=== PATIENT | female | born 1940 | race Caucasian/White ===

== ENCOUNTER 2022-02-09 14:07 | Outpatient (CLI) | payer OTHER, SELFPAY | END 2022-02-09 14:08 | disposition home or self-care (01) | LOC: INJ CL 14:08 | PROVIDERS: PCP Surgery; Visit Provider Family Medicine | DX: M17.12 Unilateral primary osteoarthritis, left knee (principal); M25.562 Pain in left knee | CPT/HCPCS: 64454 ==

== ENCOUNTER 2022-04-12 08:14 | Outpatient (RCR) | payer MEDICARE, SELFPAY | END 2022-06-04 10:26 | disposition home or self-care (01) | LOC: MOW 08:14 | PROVIDERS: PCP Surgery; Visit Provider Surgery | DX: Z76.0 Encounter for issue of repeat prescription (principal) | CPT/HCPCS: S5170 ==

== ENCOUNTER 2022-04-27 15:27 | Emergency (ER) | payer OTHER, SELFPAY ==
[2022-04-27] VITALS (13 sets, daily range): BP systolic 134–157; BP diastolic 66–69; PULSE 60–79; RESP 16; TEMP 36.7; O2SAT 97–99
--- NOTE | 2022-04-27 16:20 | CRLHL7_ITS ---
For Patients: As a result of the Cures Act, medical imaging exams and procedure reports are released immediately into your electronic medical record. You may view this report before your referring provider. If you have questions, please contact your health care provider. Indication: Bilateral knee pain. Technique: Bilateral knee, 6 views views. Comparison: None. Findings/Impression: Bones: Right knee arthroplasty. Severe left knee tricompartmental osteoarthritis. Alignment is normal. No fractures or bone lesions. No sign of acute injury. Joint spaces: Right knee arthroplasty. Severe left knee tricompartmental osteoarthritis.. Soft tissues: Unremarkable. Dictated by Da Bowden MD @ 04/27/2022 5:09:48 PM (Electronically Signed)
--- NOTE | 2022-04-27 16:23 | ED_ITS ---
HPI - General Adult General Chief complaint: Extremity Pain/Injury, Lower Stated complaint: Infections Yeast/UTI Knee Problems Time Seen by Provider: 04/27/22 16:04 History of Present Illness HPI narrative: Pt is a 82 year old woman with progressive dementia who lives at [address] [place] [address]. Pt is brought in by her daughter today as Arlin is having a harder time taking care of herself. Pt has severe bilateral knee pain although the right has been previously replaced. Pt also has been treated for repeated UTI's in the past and she has recently developed urinary frequency as well. Pt in addition has had significant hawa interigio which family currently have fairly well cleared up with local treatments and drying. Pt's daughter would like her evaluated for her knee pain and urinary frequency and would like her placed directly in a alf. Related Data Home Medications Medication Instructions Recorded Confirmed albuterol 90 mcg/actuation aerosol 2 spray inhalation PRN 04/27/22 04/27/22 inhaler aspirin 81 mg tablet,delayed 81 mg PO DAILY 04/27/22 04/27/22 release atorvastatin 20 mg tablet 20 mg PO DAILY 04/27/22 04/27/22 cephalexin 250 mg capsule mg 04/27/22 cholecalciferol (vitamin D3) 25 25 mcg PO DAILY 04/27/22 04/27/22 mcg (1,000 unit) tablet citalopram 10 mg tablet 10 mg PO 04/27/22 04/27/22 cyanocobalamin (vitamin B-12) 1,000 mcg PO DAILY 04/27/22 04/27/22 1,000 mcg tablet ferrous sulfate 325 mg (65 mg mg PO DAILY 04/27/22 04/27/22 iron) tablet,delayed release fosfomycin tromethamine 3 gram 04/27/22 oral packet gabapentin 300 mg capsule 300 mg PO QDAY 04/27/22 04/27/22 levofloxacin 500 mg tablet mg 04/27/22 lisinopril 5 mg tablet 5 mg PO BID 04/27/22 04/27/22 lysine HCl 500 mg capsule mg PO QAM 04/27/22 04/27/22 metoprolol succinate 25 mg ea PO 04/27/22 04/27/22 tablet,extended release 24 hr nystatin 100,000 unit/gram topical topical 04/27/22 cream omeprazole 20 mg capsule,delayed 20 mg PO DAILY 04/27/22 04/27/22 release pramipexole 0.25 mg tablet 0.25 mg PO 04/27/22 04/27/22 ropinirole 1 mg tablet 1 mg PO .Bedtime 04/27/22 04/27/22 tramadol 50 mg tablet 50 mg PO TID 04/27/22 04/27/22 Allergies Allergy/AdvReac Type Severity Reaction Status Date / Time walnut Allergy Unknown Verified 04/27/22 17:37 Peanut-containing Drug Allergy Uncoded 04/27/22 11:50 Products peanuts Allergy Uncoded 04/27/22 11:50 Review of Systems Status of ROS: Reports: unobtainable due to medical condition [facility] Medical History Back pain Bradycardia with 41-50 beats per minute Calculus of kidney Colitis Complicated urinary tract infection Osteoarthritis of left knee Pyelonephritis Urinary tract infection Exam Narrative: Exam Narrative: EXAM GENERAL: Patient appears frail and obese. EYES: No scleral icterus. THYROID: no thyroid nodules or thyromegaly. LYMPH: No supraclavicular or cervical lymphadenopathy. SKIN: Visible skin seen during exam normal or with benign process only. EXT: No dependent lower extremity pedal edema. HEART: Regular rate and rhythm with no murmurs, rubs, or gallops. LUNGS: Clear to auscultation bilaterally with no crackles or wheezes. ABD: Soft, non tender, non distended. PSYCH: Good eye contact, speech is not pressured. Ext: Previous TKA noted on the right knee Const: Vital Signs, click to edit/add: Vital Signs - 24 hr 04/27/22 15:52 04/27/22 16:19 04/27/22 16:20 Temperature 98.0 F Pulse Rate 62 61 Pulse Rate [Left P ulse Oximeter] 62 Respiratory Rate 16 Blood Pressure 157/68 H Blood Pressure [Ri ght Upper Arm] 157/68 H Pulse Oximetry 98 98 98 Oxygen Delivery Me thod Room Air 04/27/22 16:30 Temperature Pulse Rate 60 Pulse Rate [Left P ulse Oximeter] Respiratory Rate Blood Pressure Blood Pressure [Ri ght Upper Arm] Pulse Oximetry 99 Oxygen Delivery Me thod Course Course Hospital Course: Pt seen and examined. X ray of the knees and urinalysis collected. Reevaluation(s) Reevaluation #1: Reviewed pharmacy records. Pt was treated for UTI in March with Keflex and in early April with Levaquin. Pt is now on Phosphomycin weekly for UTI prophylaxis. Time: 17:34 Reevaluation #2: X rays of the knees bilaterally upon my review show osteoarthritis and degenerative changes. Time: 17:52 Vital Signs Vital signs: Initial Vital Signs Temperature 98.0 F 04/27/22 15:52 Temperature Source Temporal Artery Scan 04/27/22 15:52 Pulse Rate 62 04/27/22 15:52 Respiratory Rate 16 04/27/22 15:52 Blood Pressure 157/68 H 04/27/22 15:52 Blood Pressure Mean 97 04/27/22 15:52 Blood Pressure Position Supine 04/27/22 15:52 Pulse Oximetry 98 04/27/22 15:52 Oxygen Delivery Method 04/27/22 15:52 Vital Signs Temperature 98.0 F 04/27/22 15:52 Pulse Rate 62 04/27/22 15:52 Respiratory Rate 16 04/27/22 15:52 Blood Pressure 157/68 H 04/27/22 15:52 Pulse Oximetry 98 04/27/22 15:52 Oxygen Delivery Method 04/27/22 15:52 Temperature 98.0 F 04/27/22 15:52 Pulse Rate 60 04/27/22 16:30 Respiratory Rate 16 04/27/22 15:52 Blood Pressure 157/68 H 04/27/22 16:19 Pulse Oximetry 99 04/27/22 16:30 Oxygen Delivery Method 04/27/22 15:52 Medical Decision Making MDM Narrative Medical decision making narrative: Pt is a complex 82 year old woman who comes in with bilateral knee pain and difficulty functioning at home. Pt also has chronic UTI and prophylaxis. Pt has had no falls. X ray of the knees show degenerative changes. She has an ortho appt tomorrow. UA shows mild UTI vs colonization. Pt's family initially stated that they were unable to care for her and she needed placement. [facility] came down and explained that we have no beds in the hospital or at any local nursing homes. Pt's family states that they will make short term arrangements to care for pt at home. Pt was given 1 gram of Rocephin for urine findings. Chart review shows that she previously has grown out a pansensitive Citrobacter. Pt will continue current care under the care of her daughters and plan to follow up with [facility]health case manager tomorrow. Differential Diagnosis Differential Diagnosis: UTI, Sepsis, Urinary Colonization, Knee Injury, Fracture, CVA, Dementia Lab Data Labs: Lab Results 04/27/22 Range/Units 16:19 Urine Color Yellow (Yellow) Urine Appearance Clear (Clear) Urine pH 6.0 (5.0-8.5) Ur Specific [place] 1.010 (1.000-1.030) Urine Protein Negative (Negative) Urine Glucose (UA) Negative (Negative) Urine Ketones Negative (Negative) Urine Blood 2+ A (Negative) Urine Nitrite Negative (Negative) Urine Bilirubin Negative (Negative) Urine Urobilinogen 0.2 (0.2-1.0) Ur Leukocyte Esterase 1+ A (Negative) Urine RBC 2-5 A (0-2) Urine WBC 2-5 (0-5) Urine WBC Clumps None (None) Ur Squamous Epith Cells None (None-Few) Discharge Plan Discharge Clinical Impression: Chronic UTI Condition: Unchanged Additional Instructions: Continue current care Follow up with Orthopedics and [facility] tomorrow Activity Level: Activity as Tolerated Discharge Diet: Regular Prescriptions: No Action lysine HCl 500 mg capsule PO QAM cholecalciferol (vitamin D3) 25 mcg (1,000 unit) tablet 25 mcg PO DAILY ferrous sulfate 325 mg (65 mg iron) tablet,delayed release (DR/EC) PO DAILY lisinopril 5 mg tablet 5 mg PO BID omeprazole 20 mg capsule,delayed release(DR/EC) 20 mg PO DAILY aspirin 81 mg tablet,delayed release (DR/EC) 81 mg PO DAILY atorvastatin 20 mg tablet 20 mg PO DAILY cyanocobalamin (vitamin B-12) 1,000 mcg tablet 1,000 mcg PO DAILY ropinirole 1 mg tablet 1 mg PO .Bedtime albuterol 90 mcg/actuation aerosol 2 spray inhalation PRN gabapentin 300 mg capsule 300 mg PO QDAY tramadol 50 mg tablet 50 mg PO TID citalopram 10 mg tablet 10 mg PO Label Comments: TAKE 1 TABLET (10 MG) BY MOUTH EVERY MORNING. pramipexole 0.25 mg tablet 0.25 mg PO Label Comments: TAKE 1 TABLET (0.25 MG) BY MOUTH AT BEDTIME. metoprolol succinate 25 mg tablet extended release 24 hr PO Label Comments: TAKE 1 TABLET (25 MG) BY MOUTH ONCE DAILY. fosfomycin tromethamine 3 gram packet Label Comments: MIX 1 PACKET (3GM) IN THREE TO FOUR OUNCES OF WATER AND DRINK ONCE WEEKLY TO PREVENT BLADDER INFECTIONS cephalexin 250 mg capsule Label Comments: TAKE 1 CAPSULE (250 MG) BY MOUTH TWO TIMES DAILY FOR 7 DAYS. nystatin 100,000 unit/gram cream TOPICAL Label Comments: APPLY TOPICALLY TO AFFECTED AREA(S) TWO TIMES DAILY. levofloxacin 500 mg tablet Label Comments: TAKE 1 TABLET (500 MG) BY MOUTH ONCE DAILY FOR 7 DAYS. Follow Up/Referrals: Mohit Callejas MD [Primary Care Provider] - Stand Alone Forms: [employer] Info Instructions
[2022-04-27 16:53] LABS: Appearance Urine Clear (Clear); Bilirubin Urine Negative (Negative); Blood Urine 2+ (Negative); Color Urine Yellow (Yellow); Glucose Urine Negative (Negative); Ketones Urine Negative (Negative); Leukocyte Esterase Urine 1+ (Negative); Nitrite Urine Negative (Negative); Protein Urine Negative (Negative); Urobilinogen Urine 0.2 (0.2-1.0)
--- NOTE | 2022-04-27 17:42 | PC.SOCIAL ---
Discharge planning: Mt with two dtrs and son regarding d/c plan. Pt lives in her own apartment at [address]. Family has been assisting pt in her own home but feel she needs a senior care at this time. Family states they have been speaking with pt's life insurance actuary who has not been able to find a senior care, so suggested family bring pt to the hospital for placement. Family wants pt in a senior care in [facility] or [place]. Discussed with dtr the current situation of most nursing homes being full at this time and that it is too late in the day to contact nursing homes regarding availability. Dtr states that she wants to take pt home rather than leaving her in the hospital if there are no available nursing homes in [place], Dtr to discuss her plan to take pt home with MD. Provided dtr with this health social work professor's phone number. Dtr is planning to talk with pt's life insurance actuary, Rosie, to see if she has any leads on senior care placement. IF dtr wants hospital health social work professor to call nursing homes in [facility] tomorrow, dtr will call health social work professor to request this assistance. Dtr is aware that after a round of calls to facilities in [facility] and [place], if placement is not found, pt's life insurance actuary, Rosie, will be the person who will need to continue to look for placement from home. Provided dtr with list of prison facilities in the area and the Department of Health website for checking ratings of nursing homes in the state.
[2022-04-27] MEDS: cefTRIAXone 1 GM VIAL IM (18:15)
[2022-04-27] MEDS: LIDOCAINE 1% 5 ml (pf) 5 ML VIAL 2.1 ML IM (18:15)
--- NOTE | 2022-04-28 09:23 | PC.SOCIAL ---
Addendum entered by SHERRI Winston 04/28/22 10:22: Received call form Hanh toscano, requesting information from ED visit be faxed to [facility]. Faxed the information and provided Hanh with phone number ot admisions at [facility] [place] to follow up as needed. Original Note: Social work follow up: Called [facility] shelter and spoke with Darcy who stated they do have bed available and can work with the family for an admit from the community if they would like to move forward with shelter placement. Called dtr and left message asking if she is interested in having the hospital send medical information to [facility] for evaluation for admit from the community. Awaiting call back from dtr if she wants social work to follow up with referral to [facility].
[2022-04-28 11:05] LABS: Bacteria Urine Few
== END 2022-04-27 18:35 | disposition home or self-care (01) ==
PROVIDERS: Emergency Provider Internal Medicine; PCP Surgery
DX: M17.0 Bilateral primary osteoarthritis of knee (principal); N39.0 Urinary tract infection, site not specified
CPT/HCPCS: 73562; 81003; 81015; 87086; 99283; 99284; J0696

== ENCOUNTER 2022-04-30 16:51 | Emergency (ER) | payer MEDICAID, SELFPAY ==
[2022-04-30 17:08] VITALS: BP 144/73; PULSE 61; RESP 18; TEMP 36.6; O2SAT 98; BMI 39.4
[2022-04-30 17:29] LABS: Appearance Urine Clear (Clear); Bilirubin Urine Negative (Negative); Blood Urine Negative (Negative); Color Urine Yellow (Yellow); Glucose Urine Negative (Negative); Ketones Urine Negative (Negative); Leukocyte Esterase Urine 1+ (Negative); Nitrite Urine Negative (Negative); Protein Urine Negative (Negative); Specific Gravity Urine <= 1.005 (1.000-1.030); Urobilinogen Urine 0.2 (0.2-1.0); pH Urine 5.5 (5.0-8.5)
[2022-04-30 17:43] LABS: Bacteria Urine Few; Squamous Epithelial Cell Urine Few (None-Few)
--- NOTE | 2022-04-30 17:48 | ED.GENADULT ---
HPI - General Adult General Chief complaint: Urogenital Problems, Female Stated complaint: UTI Time Seen by Provider: 04/30/22 16:53 History of Present Illness HPI narrative: This patient is an 82-year-old female who has frequent recurrent urinary tract infections. She is currently on fosfomycin weekly and Septra daily. She was seen 3 days ago because of dysuria symptoms and associated confusion. She also has chronic knee pain. She did have a visit with orthopedic clinic and when able will undergo arthroplasty. Her daughter is with her and states that she gets urinary tract infections frequently in when these occur she has typical symptoms of increased frequency and urgency. She also has increased confusion. She was seen 3 days ago and her urinalysis did not show obvious sign of infection at that time. She did receive a dose of Rocephin at that time. Her daughter explains that she is getting up 7 or 8 times at night to use the restroom and a half to help her in this process. The patient does not remember any of the visits to the bathroom through the night. They are actively searching for a shelter to help with her care. Related Data Home Medications Medication Instructions Recorded Confirmed albuterol 90 mcg/actuation aerosol 2 spray inhalation PRN 04/27/22 04/27/22 inhaler aspirin 81 mg tablet,delayed 81 mg PO DAILY 04/27/22 04/27/22 release atorvastatin 20 mg tablet 20 mg PO DAILY 04/27/22 04/27/22 cephalexin 250 mg capsule mg 04/27/22 cholecalciferol (vitamin D3) 25 25 mcg PO DAILY 04/27/22 04/27/22 mcg (1,000 unit) tablet citalopram 10 mg tablet 10 mg PO 04/27/22 04/27/22 cyanocobalamin (vitamin B-12) 1,000 mcg PO DAILY 04/27/22 04/27/22 1,000 mcg tablet ferrous sulfate 325 mg (65 mg mg PO DAILY 04/27/22 04/27/22 iron) tablet,delayed release fosfomycin tromethamine 3 gram 04/27/22 oral packet gabapentin 300 mg capsule 300 mg PO QDAY 04/27/22 04/27/22 levofloxacin 500 mg tablet mg 04/27/22 lisinopril 5 mg tablet 5 mg PO BID 04/27/22 04/27/22 lysine HCl 500 mg capsule mg PO QAM 04/27/22 04/27/22 metoprolol succinate 25 mg ea PO 04/27/22 04/27/22 tablet,extended release 24 hr nystatin 100,000 unit/gram topical topical 04/27/22 cream omeprazole 20 mg capsule,delayed 20 mg PO DAILY 04/27/22 04/27/22 release pramipexole 0.25 mg tablet 0.25 mg PO 04/27/22 04/27/22 ropinirole 1 mg tablet 1 mg PO .Bedtime 04/27/22 04/27/22 tramadol 50 mg tablet 50 mg PO TID 04/27/22 04/27/22 Previous Rx's Medication Instructions Recorded levofloxacin 500 mg tablet 250 mg PO DAILY 7 days #7 tabs 04/30/22 phenazopyridine 100 mg tablet 100 mg PO TID #15 tabs 04/30/22 Allergies Allergy/AdvReac Type Severity Reaction Status Date / Time walnut Allergy Unknown Verified 04/30/22 17:07 Peanut-containing Drug Allergy Uncoded 04/28/22 13:33 Products peanuts Allergy Uncoded 04/28/22 13:33 Review of Systems Status of ROS: Reports: 10 or more systems reviewed and unremarkable except as noted in History and below Narrative: Constitutional: No fevers, no weight gain or loss. Eyes: No discharge. No vision changes. HENT: No congestion, no sore throat, no ear pain. Cardiovascular: No chest pain, no palpitations. Respiratory: No shortness of breath, no wheezes, no cough. Gastrointestinal: No abdominal pain, no vomiting, no diarrhea. Genitourinary: Increased urinary frequency. Musculoskeletal: Normal range of motion. Skin: No rashes, no pruritis. Neurological: No dizziness, weakness, sensory change, speech change. Endo/Heme/Allergies: No bruising or bleeding. No polydipsia. Pysch: no suicidality, no anxiety, no insomnia. Increased confusion and loss of memory. All other systems reviewed and are negative. [facility] Medical History (Updated 04/30/22 @ 19:10 by Tom White MD) Anxiety Back pain Bradycardia with 41-50 beats per minute Calculus of kidney Colitis Complicated urinary tract infection Depression GERD (gastroesophageal reflux disease) Osteoarthritis of left knee Pacemaker Pyelonephritis Rheumatoid arthritis Urinary tract infection Surgical History (Updated 04/28/22 @ 13:40 by Sonya Taveras RN) H/O tubal ligation History of arthroplasty of right knee Hx of cholecystectomy Previous back surgery Social History Smoking Status: Never smoker Do you use any of these nicotine containing products: None Second hand tobacco smoke exposure: Yes How often do you have a drink containing alcohol: monthly or less How often do you have six or more drinks on one occasion: Never AUDIT-C Alcohol total score: 1 Non-prescribed substance use: denies use service: No Exam Narrative: Exam Narrative: Constitutional: Well-developed, well-nourished, no acute distress. HEENT: Normocephalic, atraumatic. Neck: Normal range of motion. Nontender. Supple. Heart: Regular. No murmurs. Normal rate. Intact distal pulses. Lungs: Clear to auscultation. No chest discomfort. No wheezes, rhonchi, or rales. Abdomen: Normal bowel sounds. Nontender. No rebound tenderness. Genitalia: Deferred. Back: No midline tenderness. Normal range of motion. Extremities: Normal range of motion. No injury. Skin: Intact. No rash. Warm. No erythema or pallor. Neurologic: No altered sensation. No weakness. Alert and oriented. Psychiatric: No suicidality. No anxiety or depression. No insomnia. Nursing notes and vitals signs are reviewed. Const: Vital Signs, click to edit/add: Vital Signs - 24 hr 04/30/22 17:08 Temperature 98 F Pulse Rate [Pulse Oximeter] 61 Respiratory Rate 18 Blood Pressure [Le ft Forearm] 144/73 H Pulse Oximetry 98 Oxygen Delivery Me thod Room Air Course Vital Signs Vital signs: Initial Vital Signs Temperature 98 F 04/30/22 17:08 Temperature Source Temporal Artery Scan 04/30/22 17:08 Pulse Rate 61 04/30/22 17:08 Pulse Rhythm 04/30/22 17:08 Respiratory Rate 18 04/30/22 17:08 Blood Pressure 144/73 H 04/30/22 17:08 Blood Pressure Mean 96 04/30/22 17:08 Blood Pressure Position Supine 04/30/22 17:08 Pulse Oximetry 98 04/30/22 17:08 Oxygen Delivery Method 04/30/22 17:08 Vital Signs Temperature 98 F 04/30/22 17:08 Pulse Rate 61 04/30/22 17:08 Respiratory Rate 18 04/30/22 17:08 Blood Pressure 144/73 H 04/30/22 17:08 Pulse Oximetry 98 04/30/22 17:08 Oxygen Delivery Method 04/30/22 17:08 Temperature 98 F 04/30/22 17:08 Pulse Rate 61 04/30/22 17:08 Respiratory Rate 18 04/30/22 17:08 Blood Pressure 144/73 H 04/30/22 17:08 Pulse Oximetry 98 04/30/22 17:08 Oxygen Delivery Method 04/30/22 17:08 Medical Decision Making MDM Narrative Medical decision making narrative: This patient comes in with her daughter and reports urinary frequency. Family members are having difficulty taking care of her because of this. She did have urinalysis done here which does show 11-25 white blood cells per high-powered field. I looked back in her previous records and saw that she routinely does have this amount of white blood cells in previous studies. There were other times where she had greater than 100. She may be having a new urinary tract infection but this could also be overactive bladder with bladder spasms. The patient did receive an intramuscular injection of Rocephin 1 g. She also received a tablet of peridium orally which seem to help her symptoms. She has normal vital signs and is okay to return home. I did provide prescription for more tablets of peridium and for Levaquin in the event that this truly is an infection. I advised the patient's daughter to call back to find out about culture results in a day or 2 and if there is no significant growth in the urine culture this antibiotic could be discontinued. The patient does have a follow-up appointment with primary physician in 3 days. Lab Data Labs: Lab Results 04/30/22 Range/Units 17:25 Urine Color Yellow (Yellow) Urine Appearance Clear (Clear) Urine pH 5.5 (5.0-8.5) Ur Specific [place] <= 1.005 (1.000-1.030) Urine Protein Negative (Negative) Urine Glucose (UA) Negative (Negative) Urine Ketones Negative (Negative) Urine Blood Negative (Negative) Urine Nitrite Negative (Negative) Urine Bilirubin Negative (Negative) Urine Urobilinogen 0.2 (0.2-1.0) Ur Leukocyte Esterase 1+ A (Negative) Urine RBC 2-5 A (0-2) Urine WBC 5-10 A (0-5) Ur Squamous Epith Cells Few (None-Few) Urine Bacteria Few A (None) Discharge Plan Discharge Clinical Impression: Urinary tract infection, Overactive bladder Patient Disposition: Home w/ Parent or Adult Condition: Stable Additional Instructions: Take medication as prescribed. Follow up with MD as scheduled. Return if worsening. Prescriptions: New levofloxacin 500 mg tablet 250 mg PO DAILY 7 Days Qty: 7 0RF phenazopyridine 100 mg tablet 100 mg PO TID Qty: 15 0RF No Action lysine HCl 500 mg capsule PO QAM cholecalciferol (vitamin D3) 25 mcg (1,000 unit) tablet 25 mcg PO DAILY ferrous sulfate 325 mg (65 mg iron) tablet,delayed release (DR/EC) PO DAILY lisinopril 5 mg tablet 5 mg PO BID omeprazole 20 mg capsule,delayed release(DR/EC) 20 mg PO DAILY aspirin 81 mg tablet,delayed release (DR/EC) 81 mg PO DAILY atorvastatin 20 mg tablet 20 mg PO DAILY cyanocobalamin (vitamin B-12) 1,000 mcg tablet 1,000 mcg PO DAILY ropinirole 1 mg tablet 1 mg PO .Bedtime albuterol 90 mcg/actuation aerosol 2 spray inhalation PRN gabapentin 300 mg capsule 300 mg PO QDAY tramadol 50 mg tablet 50 mg PO TID citalopram 10 mg tablet 10 mg PO Label Comments: TAKE 1 TABLET (10 MG) BY MOUTH EVERY MORNING. pramipexole 0.25 mg tablet 0.25 mg PO Label Comments: TAKE 1 TABLET (0.25 MG) BY MOUTH AT BEDTIME. metoprolol succinate 25 mg tablet extended release 24 hr PO Label Comments: TAKE 1 TABLET (25 MG) BY MOUTH ONCE DAILY. fosfomycin tromethamine 3 gram packet Label Comments: MIX 1 PACKET (3GM) IN THREE TO FOUR OUNCES OF WATER AND DRINK ONCE WEEKLY TO PREVENT BLADDER INFECTIONS cephalexin 250 mg capsule Label Comments: TAKE 1 CAPSULE (250 MG) BY MOUTH TWO TIMES DAILY FOR 7 DAYS. nystatin 100,000 unit/gram cream TOPICAL Label Comments: APPLY TOPICALLY TO AFFECTED AREA(S) TWO TIMES DAILY. levofloxacin 500 mg tablet Label Comments: TAKE 1 TABLET (500 MG) BY MOUTH ONCE DAILY FOR 7 DAYS. Follow Up/Referrals: Mohit Callejas MD [Primary Care Provider] - Stand Alone Forms: [employer] Info Instructions
[2022-04-30] MEDS: cefTRIAXone 1 GM VIAL IM (18:42)
[2022-04-30] MEDS: PHENAZOPYRIDINE HCL 200 MG TABLET PO (18:42)
[2022-04-30] MEDS: LIDOCAINE 1% 5 ml (pf) 5 ML VIAL 2.1 ML IM (18:43)
[2022-04-30 19:39] VITALS: BP 131/86; PULSE 60; RESP 20; TEMP 36.6
--- NOTE | 2022-05-03 10:36 | ED.NURSE ---
[facility] beatty [facility] called to clarify RX. Should be levofloxacin 250mg po eric per Dr Morgan. Also urine culture is negative. Dr morgan will call and discuss with family in regards to not needing medication.
== END 2022-04-30 19:40 | disposition home or self-care (01) ==
PROVIDERS: Emergency Provider Emergency Medicine Emergency Medical Services; PCP Surgery
DX: N39.0 Urinary tract infection, site not specified (principal); N32.81 Overactive bladder
CPT/HCPCS: 81001; 87086; 96372; 99284; A9270; J0696

== ENCOUNTER 2022-06-09 01:09 | Outpatient (REF) | payer OTHER, SELFPAY ==
[2022-06-09 01:45] LABS: Appearance Urine Clear (Clear); Bilirubin Urine Negative (Negative); Blood Urine Negative (Negative); Color Urine Yellow (Yellow); Glucose Urine Negative (Negative); Ketones Urine Negative (Negative); Leukocyte Esterase Urine 1+ (Negative); Nitrite Urine Negative (Negative); Protein Urine Trace (Negative); Specific Gravity Urine 1.025 (1.000-1.030); Urobilinogen Urine 0.2 (0.2-1.0); pH Urine 5.5 (5.0-8.5)
[2022-06-09 02:23] LABS: Amorphous Sediment Urine Many; Bacteria Urine Moderate; Mucus Urine Few; RBC Urine 0-2 (0-2); Squamous Epithelial Cell Urine Moderate (None-Few)
== END 2022-06-09 01:10 | disposition home or self-care (01) ==
LOC: NPINS 01:09
PROVIDERS: PCP Surgery; Visit Provider Nurse Practitioner Gerontology
DX: N39.0 Urinary tract infection, site not specified (principal)
CPT/HCPCS: 81001; 87086

== ENCOUNTER 2022-06-10 08:00 | Outpatient (CLI) | payer OTHER, SELFPAY ==
--- NOTE | 2022-06-10 08:15 | CRLHL7_ITS ---
For Patients: As a result of the Century Cures Act, medical imaging exams and procedure reports are released immediately into your electronic medical record. You may view this report before your referring provider. If you have questions, please contact your health care provider. Technique: Double-contrast esophagram performed after the uneventful administration of effervescent crystals and thick barium. Fluoroscopy time 1 minute 30 seconds. Indication: Difficulty swallowing, hoarseness, choking Comparison: None. Findings: Laryngeal penetration occurred without aspiration. 3.8 cm sliding hiatal hernia is present. Irregularity of the distal esophageal mucosa. Delete clearance of contrast from the distal esophagus. Spontaneous reflux. Barium tablet tolerated normally without evidence of stricture. No ulcer. Impression: 3.8 cm hiatal hernia with distal esophageal reflux esophagitis. Delayed clearance of contrast from esophagus compatible with dysmotility. Spontaneous reflux noted. Dictated by Jeremy Brown MD @ 06/10/2022 2:14:45 PM (Electronically Signed)
== END 2022-06-10 08:01 | disposition home or self-care (01) ==
PROVIDERS: PCP Surgery; Visit Provider Surgery
DX: R13.10 Dysphagia, unspecified (principal); K44.9 Diaphragmatic hernia without obstruction or gangrene; K21.00 Gastro-esophageal reflux disease with esophagitis, without bleeding
CPT/HCPCS: 74221

== ENCOUNTER 2022-07-15 13:06 | Outpatient (RCR) | payer MEDICAID, SELFPAY | END 2022-08-20 19:37 | disposition home or self-care (01) | LOC: MOW 13:06 | PROVIDERS: PCP Surgery; Visit Provider Surgery | DX: Z76.0 Encounter for issue of repeat prescription (principal) | CPT/HCPCS: S5170 ==